=== PATIENT | male | born 1940 | race Caucasian/White ===

== ENCOUNTER 2016-03-23 11:55 | Emergency (ER) | payer OTHER ==
[~2016-03-23] VITALS: Ht 182.9 cm; Wt 67.2 kg
[~2016-03-23 11:55] MED LIST: BRIM0.1S OPL; GARL400T4 PO; LISI-461 PO; MULTTAB58 PO; OMEGCAP2 PO
[2016-03-23 12:04] VITALS: TEMP 36.5; Ht 182.9 cm; Wt 67.2 kg
[2016-03-23] MEDS ORDERED: ACETAMINOPHEN 500 MG TAB PO STA (12:24)
[2016-03-23] MEDS ORDERED: SODIUM CHLORIDE 0.9% 1000ML 500 ML IV STA (12:24)
--- NOTE | 2016-03-23 12:29 | EMERGENCY ROOM VISIT NOTE ---
History Report prepared by Tanvir: Pietro Gardner Under the Supervision of: Dr. Zana Calderon M.D. First contact with patient: 12:19 Chief Complaint: FALL Stated Complaint: FALL, LAC CONFUSION History of Present Illness The patient is a 76 year old male who presents to the Emergency Room with complaints of a sudden mechanical fall that occurred prior to arrival this morning. He is somewhat hard to understand. When asked what year it is and who our next president will be, the patient does answer correctly. The patient says he slipped and fell on the ground. He has a laceration over his right eye from the fall and now complains of right shoulder pain. He notes that he has hypertension. The patient states that nothing was bothering him before the fall. Source of History: patient Onset: Prior to arrival this morning Position: other (global - mechanical fall) Timing: other (sudden) Note: Associated symptoms: Laceration over right eye and right shoulder pain from fall. Denies anything bothering him before fall. Review of Systems See HPI for pertinent positives & negatives. A total of 10 systems reviewed and were otherwise negative. Past Medical & Surgical Medical Problems: (1) Basal cell carcinoma (2) Cognitive change (3) Delirium (4) Glaucoma (5) HTN (hypertension) Family History Patient reports no known family medical history. Social History Smoking Status: Never Smoker Drug Use: none Marital Status: single Housing Status: lives alone Occupation Status: retired Current/Historical Medications Scheduled Brinzolamide-Brimonidine Tartr (Simbrinza), 1 DOSE OPL TID Dorzolamide/Timolol Oph (Cosopt Oph *), 1 DROPS OPL BID Latanoprost (Xalatan 0.005% Oph Susan), 1 DROPS OPL HS Lisinopril (Lisinopril), 20 MG PO DAILY Prednisolone Acetate (Prednisolone Acetate), 1 DROP OPL QID Travoprost (Travatan Z), 1 DROP OPL HS Allergies Coded Allergies: Apraclonidine (Verified Allergy, Unknown, RASH, 01/21/16) Epinephrine (Verified Adverse Reaction, Unknown, Palpitations, 01/21/16) Physical Exam Vital Signs Date Time Temp Pulse Resp B/P Pulse Ox O2 Delivery O2 Flow Rate FiO2 03/23/16 13:49 71 18 174/96 97 Room Air 03/23/16 12:55 78 03/23/16 12:52 63 155/93 69 131/84 70 99/69 03/23/16 12:04 36.5 65 18 167/96 97 Room Air Physical Exam CONSTITUTIONAL: Moderate painful distress. HEENT: No icterus, moist mucous membranes NECK: No meningismus, trachea is midline. CARDIOVASCULAR: Regular rate, normal perfusion RESPIRATORY: Unlabored breathing. Clear to auscultation. GASTROINTESTINAL: Non-tender GENITOURINARY: No flank tenderness MUSCULOSKELETAL: Full range of motion. No midline tenderness. NEUROLOGIC: Alert, oriented, and cooperative without focal neurologic deficits. PSYCHIATRIC: Normal affect SKIN: Normal for ethnicity. Large bruise and small laceration to right forehead with edema. Medical Decision & Procedures ER Provider Diagnostic Interpretation: CT results as stated below per my review and radiologist interpretation. MAXILLOFACIAL CT WITHOUT CONTRAST CLINICAL HISTORY: Fall with facial injury. COMPARISON STUDY: Facial bone radiographs May 24, 2015. TECHNIQUE: A maxillofacial CT was performed without IV contrast. Coronal and sagittal reformats were viewed. FINDINGS: Alignment of the temporomandibular joints is anatomic. Right facial and right forehead contusions are present. The globes are intact. There is no retrobulbar hematoma. No acute fracture of the facial bones is identified. IMPRESSION: 1. No acute facial fracture. 2. Right facial and forehead contusions. Globes intact. No retrobulbar hematoma. Electronically signed by: Vernon Hartmann M.D. 03/23/2016 2:39 PM Dictated Date/Time: 03/23/2016 2:[address] OF THE HEAD WITHOUT CONTRAST CLINICAL HISTORY: Fall. COMPARISON STUDY: Head CT January 21, 2016. CT DOSE: 2481.94 mGy.cm TECHNIQUE: Helical axial images of the head were obtained without IV contrast. Automated exposure control was utilized for the study. FINDINGS: No acute intracranial hemorrhage, midline shift or mass effect is present. Ventricular system is stable. The basilar cisterns are patent. There are no extra axial collections. Mild white matter hypodensity suggests small vessel disease. The appearance of the brain is unchanged. Right facial contusions are present. No calvarial fracture is identified. The facial bones are better depicted on the maxillofacial CT. IMPRESSION: 1. No acute intracranial findings. 2. Right facial and forehead contusions. No calvarial fracture. The facial bones are better depicted on the maxillofacial CT. Electronically signed by: Vernon Hartmann M.D. 03/23/2016 2:36 PM Dictated Date/Time: 03/23/2016 2:[address] OF THE CHEST WITH IV CONTRAST CLINICAL HISTORY: Bruising status post trauma. COMPARISON STUDY: Chest x-ray dated 01/21/2016 TECHNIQUE: Following the IV administration of 119 mL of Optiray-320, CT of the thorax was performed from the thoracic inlet to the lung bases. Images are reviewed in the axial, sagittal, and coronal planes. IV contrast was administered without complication. CT DOSE: FINDINGS: Thyroid: Imaged portions of the thyroid gland are normal in appearance. Thoracic aorta: The thoracic aorta is normal in course and caliber, noting standard 3-vessel arch anatomy. No aneurysm or dissection is seen. Pulmonary vasculature: The pulmonary trunk is normal in caliber. There are no central filling defects identified to suggest pulmonary embolus. Note that this examination was not protocoled for the evaluation of pulmonary emboli. HEART: The heart is normal in size and configuration, without pericardial effusion. Lungs and pleural spaces: There is respiratory motion artifact. There is mild emphysema. There is bibasal atelectasis. There is scattered bilateral calcified granulomas. Mediastinum: There is no mediastinal lymphadenopathy. Linda: Clear. Axilla: Clear. Upper abdomen: Partially visualized upper abdominal viscera is within normal limits. Skeletal structures: There are no lytic or blastic osseous lesions. There is a mild superior endplate T3 compression deformity which is felt to be old IMPRESSION: 1. No CT evidence of acute intrathoracic injury 2. Multiple tiny bilateral calcified granulomas 3. Bibasilar atelectasis 4. Emphysema Electronically signed by: Oneil Mendez M.D. 03/23/2016 2:53 PM Dictated Date/Time: 03/23/2016 2:[address] SCAN OF THE CERVICAL SPINE CLINICAL HISTORY: Trauma. Fall. COMPARISON STUDY: No priors. TECHNIQUE: CT scan of the cervical spine is performed from the skull base to the upper thoracic spine. Images are reviewed in the axial, sagittal, and coronal planes. IV contrast was not administered for this examination. FINDINGS: Skeletal structures: The skeletal structures are osteopenic. There is no evidence of fracture or subluxation involving the cervical spine. Vertebral body height and alignment are maintained. The odontoid process and lateral masses are intact. The atlantoaxial articulation is preserved noting productive degenerative change. The spinous processes appear intact. There is mild to moderate multilevel cervical spondylosis. Uncovertebral and facet arthropathy are seen at several levels. There are mild superior endplate compression deformities of T3 and T4. Intervertebral discs: There is moderate disc space narrowing at C5-C6. The remaining disc spaces appear preserved. Central canal: A posterior disc osteophyte complex at C5-C6 likely contributes to acquired compromise of the central canal. Soft tissues: The prevertebral and paraspinous soft tissues are within normal limits. Calvarium: The visualized calvarium at the skull base appears intact. Brain parenchyma: Partially visualized brain parenchyma the skull base is within normal limits. Sinuses and mastoids: The visualized paranasal sinuses are clear. The mastoid air cells are well pneumatized. Lung apices: Clear as visualized noting scattered calcified granulomas. IMPRESSION: 1. There is no evidence of fracture or subluxation involving the cervical spine. 2. Osteopenia and spondylotic change as above. 3. There are mild and age indeterminant superior endplate compression deformities of T3 and T4. Electronically signed by: Fady Contreras M.D. 03/23/2016 2:41 PM Dictated Date/Time: 03/23/2016 2:[address] SCAN OF THE ABDOMEN AND PELVIS WITH IV CONTRAST CLINICAL HISTORY: Fall. COMPARISON STUDY: Pelvic radiograph dated 01/27/2010. TECHNIQUE: Following the IV administration of 119 cc of Optiray 320, CT scan of the abdomen and pelvis is performed from the lung bases to the proximal femora. Images are reviewed in the axial, sagittal, and coronal planes. IV contrast was administered without complication. Automated dose control exposure was utilized. The examination is degraded by streak artifact from the patient's arms which could not be elevated above the abdomen or pelvis. The examination is also significantly degraded by motion artifact. FINDINGS: Lung bases: The heart is normal in size and without pericardial effusion. The lung bases are clear noting dependent atelectasis. No pneumothorax is seen at either lung base. Liver: The contrast-enhanced liver is normal in size, contour, and attenuation. There is no intrahepatic biliary ductal dilatation. The hepatic veins and portal veins are patent. Gallbladder: Unremarkable. Spleen: Normal in size and attenuation. Pancreas: Moderately atrophic and grossly unremarkable. Adrenal glands: Unremarkable. Kidneys: The contrast enhanced kidneys demonstrate cortical atrophy and are without hydronephrosis. The kidneys enhance symmetrically. Abdominal vasculature: The abdominal aorta is normal in course and caliber noting moderate atherosclerotic calcification. Bowel: The small bowel and colon are normal in course and caliber. Mild wall thickening and hyperemia is suggested involving the distal/terminal ileum on axial image #261. There is moderate colonic fecal retention. The appendix is well-visualized and normal. Peritoneum: There is no intraperitoneal free air or abdominal ascites. Lymphadenopathy: None. Pelvic viscera: The prostate gland is enlarged and heterogeneous, measuring 6 cm in transverse diameter. There is median lobe hypertrophy. The bladder is normal as visualized. Skeletal structures: The skeletal structures are osteopenic. No fracture is identified. Limbus vertebra is identified involving T12. There is moderate lumbosacral spondylosis. No lytic or blastic lesions are seen. IMPRESSION: 1. Significantly motion and streak artifact degraded examination. 2. There is no evidence of solid organ injury in the abdomen or pelvis. 3. No fracture is identified. 4. Moderate constipation. 5. Question mild wall thickening and hyperemia involving the distal/terminal ileum. Correlate clinically for evidence of a nonspecific distal/terminal ileitis. 6. Prostatomegaly. 7. Additional changes as above. Electronically signed by: Fady Contreras M.D. 03/23/2016 2:55 PM Dictated Date/Time: 03/23/2016 2:44 PM Laboratory Results 03/23/16 13:08 Red Blood Count 4.75, Mean Corpuscular Volume 92.8, Mean Corpuscular Hemoglobin 32.4, Mean Corpuscular Hemoglobin Concent 34.9, Mean Platelet Volume 10.0, Neutrophils (%) (Auto) 77.6, Lymphocytes (%) (Auto) 12.0, Monocytes (%) (Auto) 8.5, Eosinophils (%) (Auto) 1.5, Basophils (%) (Auto) 0.3, Neutrophils # (Auto) 5.58, Lymphocytes # (Auto) 0.86, Monocytes # (Auto) 0.61, Eosinophils # (Auto) 0.11, Basophils # (Auto) 0.02 03/23/16 13:08 Test 03/23/16 13:08 White Blood Count 7.19 K/uL (4.8-10.8) Red Blood Count 4.75 M/uL (4.7-6.1) Hemoglobin 15.4 g/dL (14.0-18.0) Hematocrit 44.1 % (42-52) Mean Corpuscular Volume 92.8 fL (80-100) Mean Corpuscular Hemoglobin 32.4 pg (25-34) Mean Corpuscular Hemoglobin Concent 34.9 g/dl (32-36) Platelet Count 199 K/uL (130-400) Mean Platelet Volume 10.0 fL (7.4-10.4) Neutrophils (%) (Auto) 77.6 % Lymphocytes (%) (Auto) 12.0 % Monocytes (%) (Auto) 8.5 % Eosinophils (%) (Auto) 1.5 % Basophils (%) (Auto) 0.3 % Neutrophils # (Auto) 5.58 K/uL (1.4-6.5) Lymphocytes # (Auto) 0.86 K/uL (1.2-3.4) Monocytes # (Auto) 0.61 K/uL (0.11-0.59) Eosinophils # (Auto) 0.11 K/uL (0-0.5) Basophils # (Auto) 0.02 K/uL (0-0.2) RDW Standard Deviation 44.8 fL (36.4-46.3) RDW Coefficient of Variation 13.2 % (11.5-14.5) Immature Granulocyte % (Auto) 0.1 % Immature Granulocyte # (Auto) 0.01 K/uL (0.00-0.02) Prothrombin Time 10.7 SECONDS (9.0-12.0) Prothromb Time International Ratio 1.0 (0.9-1.1) Activated Partial Thromboplast Time 29.4 SECONDS (21.0-31.0) Partial Thromboplastin Ratio 1.1 Anion Gap 9.0 mmol/L (3-11) Est Creatinine Clear Calc Drug Dose 65.9 ml/min Estimated GFR () 94.0 Estimated GFR (Non- 81.1 BUN/Creatinine Ratio 30.2 (10-20) Calcium Level 9.7 mg/dl (8.5-10.1) Magnesium Level 2.4 mg/dl (1.8-2.4) Total Bilirubin 0.5 mg/dl (0.2-1) Direct Bilirubin 0.1 mg/dl (0-0.2) Aspartate Amino Transf (AST/SGOT) 20 U/L (15-37) Alanine Aminotransferase (ALT/SGPT) 27 U/L (12-78) Alkaline Phosphatase 108 U/L (45-117) Troponin I 0.015 ng/ml (0-0.045) Total Protein 6.9 gm/dl (6.4-8.2) Albumin 3.6 gm/dl (3.4-5.0) Labs reviewed by ED physician. ECG Indication: other (fall) Rate (beats per minute): 67 Rhythm: normal sinus Findings: other (RBBB, nonspecific ST findings) ED Course 1221: Past medical records reviewed. The patient was evaluated in room C12B. A complete history and physical examination was performed. 1224: Ordered NSS 500 ml @ 0 mls/hr Wide Open IV, Tylenol Tab 1000 mg PO. 1230: Ordered Morphine Sulfate Inj 4 mg IV PRN. 1331: I reevaluated the patient and I discussed the pros and cons of CT imaging with him. I am adamant that the patient gets imaging. I also got the leather case finisher to check the patient's social status. The patient refused an x-ray. 1545: Ordered Buffered Lidocaine 1% Inj 20 ml INFIL, Buffered Xylocaine/ Epinephrine 1% Inj 20 ml INFIL. 1549: I reevaluated the patient and he is resting comfortably. The patient verbally expressed agreement and understanding of the treatment plan. The patient will be discharged. Medical Decision Differential diagnosis: Etiologies such as fracture, dislocation, intra-abdominal, pneumothorax, intrathoracic , intracranial, neurologic, as well as other traumatic pathologies were entertained, Etiologies such as sepsis, UTI, pneumonia, metabolic, electrolyte abnormalities , cardiac sources, intracerebral event, toxicologic, neurologic, as well as others were entertained. 36-year-old presented via ambulatory evaluation of mechanical fall and subsequent head injury with extensive bruising to the right side of his face with stellate facial laceration. Patient talks very intelligently although it is sometimes hard to understand given his [place] accent. He denies any other complaints by review of systems and initially was refusing CT scanning of his head as well as other workups. He is very adamant that he had right as a patient and after much discussion on my part and convincing I was adamant that given his age and circumstances a CT of his head was to be obtained. He subsequently cooperated for the CT scan which was ultimately negative. He refused shoulder x-ray is internal to go home. Patient appears generally unwell and therefore case management consult obtained for home evaluation and possibility of additional services should patient desire them. Patient was very clear he wanted no further care and no observation hospital. PA completed suture repair. Impression Primary Impression: Head injury Additional Impressions: Facial laceration, Facial contusion, Shoulder contusion Scribe Attestation The scribe's documentation has been prepared under my direction and personally reviewed by me in its entirety. I confirm that the note above accurately reflects all work, treatment, procedures, and medical decision making performed by me. Departure Information Dispostion Home / Self-Care Referrals Socrates Solis M.D. (PCP) Forms HOME CARE DOCUMENTATION FORM, IMPORTANT VISIT INFORMATION Patient Instructions A Signature Page, ED Head Injury Closed, ED Laceration Facial Sutr Tape, My [facility]
[2016-03-23] MEDS ORDERED: MoRPHine SULFATE 4 MG/ML 1 ML CARP\\VIAL IV PRN (12:30)
[2016-03-23] MEDS ORDERED: LSN20 PO (12:34)
[2016-03-23] MEDS ORDERED: LATA0.5S OPB (12:36)
[2016-03-23 13:26] LABS: BASO % 0.3 %; BASO ABS # 0.02 K/uL (0-0.2); COMPLETE YES; EOS % 1.5 %; HEMATOCRIT 44.1 % (42-52); IG% 0.1 %; LYMPH ABS # 0.86 K/uL (1.2-3.4); MEAN CELL VOLUME 92.8 fL (80-100); MEAN CORPUSCULAR HEMOGLOBIN 32.4 pg (25-34); MEAN CORPUSCULAR HGB CONC 34.9 g/dl (32-36); MONO % 8.5 %; NEUT % 77.6 %; PLATELET COUNT 199 K/uL (130-400); RED BLOOD COUNT 4.75 M/uL (4.7-6.1); WHITE BLOOD COUNT 7.19 K/uL (4.8-10.8)
[2016-03-23 13:38] LABS: PARTIAL THROMBOPLASTIN RATIO 1.1; PROTHROMBIN TIME (PATIENT) 10.7 SECONDS (9.0-12.0)
[2016-03-23 13:47] LABS: BUN/CREATININE RATIO 30.2 (10-20); CALCIUM 9.7 mg/dl (8.5-10.1); CREATININE 0.92 mg/dl (0.60-1.40); MAGNESIUM 2.4 mg/dl (1.8-2.4)
[2016-03-23] MEDS ORDERED: OPTIRAY 320 IV PRN (14:30)
--- NOTE | 2016-03-23 14:37 | DIAGNOSTIC IMAGING REPORT ---
CT OF THE HEAD WITHOUT CONTRAST CLINICAL HISTORY: Fall. COMPARISON STUDY: Head CT January 21, 2016. CT DOSE: 2481.94 mGy.cm TECHNIQUE: Helical axial images of the head were obtained without IV contrast. Automated exposure control was utilized for the study. FINDINGS: No acute intracranial hemorrhage, midline shift or mass effect is present. Ventricular system is stable. The basilar cisterns are patent. There are no extra axial collections. Mild white matter hypodensity suggests small vessel disease. The appearance of the brain is unchanged. Right facial contusions are present. No calvarial fracture is identified. The facial bones are better depicted on the maxillofacial CT. IMPRESSION: 1. No acute intracranial findings. 2. Right facial and forehead contusions. No calvarial fracture. The facial bones are better depicted on the maxillofacial CT. Electronically signed by: Vernon Hartmann M.D. 03/23/2016 2:36 PM Dictated Date/Time: 03/23/2016 2:33 PM
[2016-03-23] MEDS ORDERED: CSPOPS OPL (14:39)
--- NOTE | 2016-03-23 14:41 | DIAGNOSTIC IMAGING REPORT ---
MAXILLOFACIAL CT WITHOUT CONTRAST CLINICAL HISTORY: Fall with facial injury. COMPARISON STUDY: Facial bone radiographs May 24, 2015. TECHNIQUE: A maxillofacial CT was performed without IV contrast. Coronal and sagittal reformats were viewed. FINDINGS: Alignment of the temporomandibular joints is anatomic. Right facial and right forehead contusions are present. The globes are intact. There is no retrobulbar hematoma. No acute fracture of the facial bones is identified. IMPRESSION: 1. No acute facial fracture. 2. Right facial and forehead contusions. Globes intact. No retrobulbar hematoma. Electronically signed by: Vernon Hartmann M.D. 03/23/2016 2:39 PM Dictated Date/Time: 03/23/2016 2:36 PM
--- NOTE | 2016-03-23 14:43 | DIAGNOSTIC IMAGING REPORT ---
CT SCAN OF THE CERVICAL SPINE CLINICAL HISTORY: Trauma. Fall. COMPARISON STUDY: No priors. TECHNIQUE: CT scan of the cervical spine is performed from the skull base to the upper thoracic spine. Images are reviewed in the axial, sagittal, and coronal planes. IV contrast was not administered for this examination. FINDINGS: Skeletal structures: The skeletal structures are osteopenic. There is no evidence of fracture or subluxation involving the cervical spine. Vertebral body height and alignment are maintained. The odontoid process and lateral masses are intact. The atlantoaxial articulation is preserved noting productive degenerative change. The spinous processes appear intact. There is mild to moderate multilevel cervical spondylosis. Uncovertebral and facet arthropathy are seen at several levels. There are mild superior endplate compression deformities of T3 and T4. Intervertebral discs: There is moderate disc space narrowing at C5-C6. The remaining disc spaces appear preserved. Central canal: A posterior disc osteophyte complex at C5-C6 likely contributes to acquired compromise of the central canal. Soft tissues: The prevertebral and paraspinous soft tissues are within normal limits. Calvarium: The visualized calvarium at the skull base appears intact. Brain parenchyma: Partially visualized brain parenchyma the skull base is within normal limits. Sinuses and mastoids: The visualized paranasal sinuses are clear. The mastoid air cells are well pneumatized. Lung apices: Clear as visualized noting scattered calcified granulomas. IMPRESSION: 1. There is no evidence of fracture or subluxation involving the cervical spine. 2. Osteopenia and spondylotic change as above. 3. There are mild and age indeterminant superior endplate compression deformities of T3 and T4. Electronically signed by: Fady Contreras M.D. 03/23/2016 2:41 PM Dictated Date/Time: 03/23/2016 2:37 PM
--- NOTE | 2016-03-23 14:55 | DIAGNOSTIC IMAGING REPORT ---
CT OF THE CHEST WITH IV CONTRAST CLINICAL HISTORY: Bruising status post trauma. COMPARISON STUDY: Chest x-ray dated 01/21/2016 TECHNIQUE: Following the IV administration of 119 mL of Optiray-320, CT of the thorax was performed from the thoracic inlet to the lung bases. Images are reviewed in the axial, sagittal, and coronal planes. IV contrast was administered without complication. CT DOSE: FINDINGS: Thyroid: Imaged portions of the thyroid gland are normal in appearance. Thoracic aorta: The thoracic aorta is normal in course and caliber, noting standard 3-vessel arch anatomy. No aneurysm or dissection is seen. Pulmonary vasculature: The pulmonary trunk is normal in caliber. There are no central filling defects identified to suggest pulmonary embolus. Note that this examination was not protocoled for the evaluation of pulmonary emboli. HEART: The heart is normal in size and configuration, without pericardial effusion. Lungs and pleural spaces: There is respiratory motion artifact. There is mild emphysema. There is bibasal atelectasis. There is scattered bilateral calcified granulomas. Mediastinum: There is no mediastinal lymphadenopathy. Linda: Clear. Axilla: Clear. Upper abdomen: Partially visualized upper abdominal viscera is within normal limits. Skeletal structures: There are no lytic or blastic osseous lesions. There is a mild superior endplate T3 compression deformity which is felt to be old IMPRESSION: 1. No CT evidence of acute intrathoracic injury 2. Multiple tiny bilateral calcified granulomas 3. Bibasilar atelectasis 4. Emphysema Electronically signed by: Oneil Mendez M.D. 03/23/2016 2:53 PM Dictated Date/Time: 03/23/2016 2:47 PM
--- NOTE | 2016-03-23 14:56 | DIAGNOSTIC IMAGING REPORT ---
CT SCAN OF THE ABDOMEN AND PELVIS WITH IV CONTRAST CLINICAL HISTORY: Fall. COMPARISON STUDY: Pelvic radiograph dated 01/27/2010. TECHNIQUE: Following the IV administration of 119 cc of Optiray 320, CT scan of the abdomen and pelvis is performed from the lung bases to the proximal femora. Images are reviewed in the axial, sagittal, and coronal planes. IV contrast was administered without complication. Automated dose control exposure was utilized. The examination is degraded by streak artifact from the patient's arms which could not be elevated above the abdomen or pelvis. The examination is also significantly degraded by motion artifact. FINDINGS: Lung bases: The heart is normal in size and without pericardial effusion. The lung bases are clear noting dependent atelectasis. No pneumothorax is seen at either lung base. Liver: The contrast-enhanced liver is normal in size, contour, and attenuation. There is no intrahepatic biliary ductal dilatation. The hepatic veins and portal veins are patent. Gallbladder: Unremarkable. Spleen: Normal in size and attenuation. Pancreas: Moderately atrophic and grossly unremarkable. Adrenal glands: Unremarkable. Kidneys: The contrast enhanced kidneys demonstrate cortical atrophy and are without hydronephrosis. The kidneys enhance symmetrically. Abdominal vasculature: The abdominal aorta is normal in course and caliber noting moderate atherosclerotic calcification. Bowel: The small bowel and colon are normal in course and caliber. Mild wall thickening and hyperemia is suggested involving the distal/terminal ileum on axial image #261. There is moderate colonic fecal retention. The appendix is well-visualized and normal. Peritoneum: There is no intraperitoneal free air or abdominal ascites. Lymphadenopathy: None. Pelvic viscera: The prostate gland is enlarged and heterogeneous, measuring 6 cm in transverse diameter. There is median lobe hypertrophy. The bladder is normal as visualized. Skeletal structures: The skeletal structures are osteopenic. No fracture is identified. Limbus vertebra is identified involving T12. There is moderate lumbosacral spondylosis. No lytic or blastic lesions are seen. IMPRESSION: 1. Significantly motion and streak artifact degraded examination. 2. There is no evidence of solid organ injury in the abdomen or pelvis. 3. No fracture is identified. 4. Moderate constipation. 5. Question mild wall thickening and hyperemia involving the distal/terminal ileum. Correlate clinically for evidence of a nonspecific distal/terminal ileitis. 6. Prostatomegaly. 7. Additional changes as above. Electronically signed by: Fady Contreras M.D. 03/23/2016 2:55 PM Dictated Date/Time: 03/23/2016 2:44 PM
[2016-03-23] MEDS ORDERED: BRIN3SUS OPL (15:03)
[2016-03-23] MEDS ORDERED: TRAV0.00 OPL (15:03)
[2016-03-23] MEDS ORDERED: PRDFOPS OPL (15:03)
[2016-03-23] MEDS ORDERED: XYLOCAINE 1%/SOD BICARB 20 ML VIAL INFIL ONE ×2 (15:40→15:45)
[2016-03-23] MEDS ORDERED: LIDO/EPINEPHRINE/SOD BICARB 20 ML VIAL INFIL ONE (15:45)
--- NOTE | 2016-03-23 16:29 | EMERGENCY ROOM VISIT NOTE ---
ED Visit Note I was requested by to repair a facial laceration on this patient. Wound Repair: Complexity: Basic. Verbal consent was obtained after the risks and benefits were explained, including but not limited to bleeding, scarring, infection, pain, and bone/joint /nerve damage. The skin was prepped with betadine and a sterile field set. The wound was anesthetized with 3.0 ml of 1% buffered lidocaine. With direct pressure the bleeding subsided. Copious irrigation was performed using sterile saline. The wound was explored for foreign bodies and none found. Debridement was not performed. The wound edges were approximated using 6-0 Ethilon with 7 simple interrupted sutures. Hemostasis and excellent approximation was achieved. Antibacterial ointment and a sterile dressing applied. Detailed wound care instructions and signs and symptoms of infection reviewed with the patient. No complications and the patient tolerated the procedure well. Please see Dr. huitron's note for further patient care.
[2016-03-23 19:34] VITALS: BP 140/90; PULSE 76; O2SAT 99
--- NOTE | 2016-03-25 08:09 | EDITING REQUIRED CODING QUERY ---
41 DOS 03/23/16 LENGTH OF LACERATION To promote full compliance with coding requirements relating to patient care, physician participation is requested in all cases of size marker uncertainty. Please assist us with the question(s) below: Please document the length of the FOREHEAD laceration. Please type the length in cm within the parenthesis () below. FOREHEAD laceration is ( 2.5 ) cm. Thank you Lashawn Flores
== END 2016-03-23 20:12 | disposition home or self-care (01) ==
LOC: EDBD 11:55 → C.EDC 11:56
DX: S01.81XA Laceration without foreign body of other part of head, initial encounter (principal); S40.011A Contusion of right shoulder, initial encounter; W01.0XXA Fall on same level from slipping, tripping and stumbling without subsequent striking against object, initial encounter; Z85.828 Personal history of other malignant neoplasm of skin; H40.9 Unspecified glaucoma; I10 Essential (primary) hypertension; R41.0 Disorientation, unspecified; Z79.899 Other long term (current) drug therapy

== ENCOUNTER → 2016-04-13 | Outpatient (CLI) | payer OTHER ==
[~2016-04-13] MED LIST changes: -BRIM0.1S OPL; +BRIN3SUS OPL; +CSPOPS OPL; -GARL400T4 PO; +LATA0.5S OPB; -LISI-461 PO; +LSN20 PO; -MULTTAB58 PO; -OMEGCAP2 PO; +PRDFOPS OPL; +TRAV0.00 OPL
--- NOTE | 2016-04-14 14:43 | DIAGNOSTIC IMAGING REPORT ---
LUMBAR SPINE 5 VIEWS HISTORY: LOW BACK PAIN COMPARISON: None. FINDINGS: There is no fracture. No subluxation. For the purpose of the report there are 5 lumbar-type vertebral bodies. S1 is demonstrated to be a transitional vertebra with partial subluxation on the left. Mild/moderate facet degenerative changes within the lower lumbar spine. Hypoplastic S1-S2 disc space. Mild disc space to L4-L5 and L5-S1. IMPRESSION: No fracture or subluxation within the lumbar spine. 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 Electronically signed by: David Torres M.D. 04/14/2016 2:42 PM Dictated Date/Time: 04/14/2016 2:16 PM
== END | disposition home or self-care (01) ==
LOC: C.RDSM 16:48
PROVIDERS: ATTEND Family Medicine
DX: M54.5 Low back pain (principal); M47.816 Spondylosis without myelopathy or radiculopathy, lumbar region

== ENCOUNTER → 2016-07-23 | Day surgery (SDC) | payer OTHER ==
[2016-07-02 12:04] VITALS: Ht 182.9 cm; Wt 63.6 kg
[~2016-07-23] VITALS: Ht 182.9 cm; Wt 63.6 kg
[~2016-07-23] MED LIST changes: -BRIN3SUS OPL; -CSPOPS OPL; +IOPAMIDOL INJ 61% 15 ML VIAL ONE; +LIDOCAINE HCL 1% MPF 5 ML VIAL ONE; -LSN20 PO; -PRDFOPS OPL; +SODIUM CHLORIDE 0.9% INJ 10 ML VIAL ONE; -TRAV0.00 OPL
--- NOTE | 2016-07-23 15:19 | History & Physical Bridge - [place] ---
H&P Re-Evaluation Bridge Note: I have examined the patient, reviewed the History & Physical and in the interval since the performance of the History & Physical I have noted the following changes of clinical significance: No changes noted
[2016-07-23 15:46] VITALS: TEMP 36.5
--- NOTE | 2016-07-23 15:48 | Discharge Instructions ---
Discharge Instructions Date of Service July 23, 2016. Visit Reason for Visit: Lumbar Spinal Stenosis Discharge Discharge Diagnosis / Problem: leg pain Discharge Goals Goal(s): Decrease discomfort, Improve function Activity Recommendations Activity Limitations: resume your previous activity Anesthesia . Post Anesthesia Instructions: If you have had General Anesthesia or IV Sedation: * Do not drive today. * Resume driving when surgeon permits. * Do not make important decisions or sign legal documents today. * Call surgeon for: 1. Temperature elevations greater than 101 degrees F. 2. Uncontrollable pain. 3. Excessive bleeding. 4. Persistent nausea and vomiting. 5. Medication intolerance (nausea, vomiting or rash). * For nausea and vomiting use only clear liquids such as: tea, soda, bouillon until nausea subsides, then gradually increase diet as tolerated. * If you have any concerns or questions, call your surgeon's office. If physician is unavailable and it is an emergency, call 911 or go to the nearest emergency room. . Diet Recommendations Recommended Home Diet: resume previous diet Procedures Procedures Performed: LUMBAR EPIDURAL STEROID INJECTION Pending Studies Studies pending at discharge: no Medical Emergencies . Who to Call and When: Medical Emergencies: If at any time you feel your situation is an emergency, please call 911 immediately. . Non-Emergent Contact Non-Emergency issues call your: Specialist . . "Provider Documentation" section prepared by Frank Alcantara. .
[2016-07-23 16:00] VITALS: BP 167/95; PULSE 67; O2SAT 98
--- NOTE | 2016-07-24 05:47 | OPERATIVE REPORT ---
DATE OF OPERATION: 07/23/2016 PREOPERATIVE DIAGNOSIS: Lumbar spinal stenosis with neurogenic claudication. POSTOPERATIVE DIAGNOSIS: Same. INDICATIONS: The patient is a 76-year-old white male who has difficulty with lumbar spinal stenosis, which causes him neurogenic claudication. He notes that to ambulate he needs to bend forward or sit down to take breaks. He is having more difficulty and discomfort and presents today for an epidural injection to provide him with functional improvement as he has not responded to conservative treatment. PHYSICAL EXAMINATION: Pleasant male with nontender to palpation of his lumbar spine. He had no significant limitations with forward flexion or extension. He had no focal weakness. Negative seated straight leg raises. CONSENT: Verbal and written consent was obtained from the patient. Risks and benefits were reviewed. Risks include but are not limited to epidural abscess, epidural hematoma, allergic reaction and dural puncture, wishes to proceed. PROCEDURE: The patient was taken back into the special procedures room of the [facility] where he was maintained in a prone position. Backside was cleansed with Betadine x3 and a dry sterile dressing was applied. Fluoroscope was used to identify the L5-S1 intralaminar space and overlying skin on the left side was anesthetized with 4 mL of lidocaine 1% with a 25 gauge 1.5-inch needle. A 22-gauge 3-1/2 inch Tuohy needle was then directed down towards the intralaminar space. It was advanced under lateral fluoroscopic guidance and loss of resistance was noted at a depth of 6 cm. Isovue 300 contrast was not injected given his reaction to iodipine and he underwent injection after negative aspiration of 40 mg Depo-Medrol and 4 mL of preservative free sodium chloride. Injection was well tolerated. DISPOSITION: 1. The patient is taken out into the discharge recovery area where he will be discharged home once discharge criteria have been met. 2. Follow up in the [facility] office in 2-4 weeks. I attest to the content of the Intraoperative Record and any orders documented therein. Any exceptions are noted below. MIRIAM
== END | disposition home or self-care (01) ==
LOC: X.SURG 12:51
PROVIDERS: ATTEND Physical Medicine & Rehabilitation
DX: M48.06 Spinal stenosis, lumbar region (principal); I73.9 Peripheral vascular disease, unspecified

== ENCOUNTER 2016-07-26 14:44 | Emergency (ER) | payer OTHER ==
[~2016-07-26 14:44] MED LIST changes: -IOPAMIDOL INJ 61% 15 ML VIAL ONE; -LIDOCAINE HCL 1% MPF 5 ML VIAL ONE; -SODIUM CHLORIDE 0.9% INJ 10 ML VIAL ONE
== END 2016-07-26 16:18 | disposition left against medical advice (07) ==
LOC: C.EDB 14:48
DX: R13.0 Aphagia (principal)

== ENCOUNTER → 2016-09-03 | Outpatient (CLI) | payer OTHER ==
[2016-09-03 08:57] LABS: ALT/SGPT 22 U/L (12-78); AST/SGOT 14 U/L (15-37); BLOOD UREA NITROGEN 17 mg/dl (7-18); BUN/CREATININE RATIO 15.3 (10-20); CARBON DIOXIDE 29 mmol/L (21-32); CHLORIDE 106 mmol/L (98-107); GLUCOSE 90 mg/dl (70-99); MAGNESIUM 2.4 mg/dl (1.8-2.4); POTASSIUM 4.3 mmol/L (3.5-5.1); SODIUM 142 mmol/L (136-145); TRIGLYCERIDES 48 mg/dl (0-150); VERY LOW DENSITY LIPOPROT CALC 10 mg/dl
[2016-09-03 09:08] LABS: ALB/GLOB RATIO 1.2 (0.9-2); ALKALINE PHOSPHATASE 81 U/L (45-117); CHOLESTEROL 194 mg/dl (0-200); CHOLESTEROL/HDL RATIO 3.5; HDL CHOLESTEROL 56 mg/dl; LDL CHOLESTEROL CALCULATED 128 mg/dl
[2016-09-03 09:17] LABS: CALCIUM 8.8 mg/dl (8.5-10.1)
--- NOTE | 2016-09-07 12:44 | CODING QUERY MEDICAL NECESSITY ---
SUPPORTING DIAGNOSIS NEEDED A supporting diagnosis is required for the test/procedure performed on this patient in order for us to be reimbursed by the patient's insurance. Please provide a supporting diagnosis for the following test/procedure listed below next to the test name along with your signature. *If there is no additional diagnosis for this patient that would support the following test/procedure please document that below next to the test/procedure. Test(s)/Procedure(s) that require a supporting diagnosis: * VITAMIN D, 25-HYDROXY DIAGNOSIS: Provider Signature: Date: Thank you Marta Oviedo [employer] Once completed, please kindly fax back to [phone] For questions please call [phone]
== END ==
LOC: C.LABCC 07:49
PROVIDERS: ATTEND Internal Medicine
DX: G20 Parkinson's disease (principal); I10 Essential (primary) hypertension; E78.5 Hyperlipidemia, unspecified; M81.8 Other osteoporosis without current pathological fracture; M62.81 Muscle weakness (generalized); R26.89 Other abnormalities of gait and mobility

== ENCOUNTER → 2017-04-14 | Outpatient (CLI) | payer OTHER ==
[2017-04-14 10:18] LABS: ALBUMIN 3.4 gm/dl (3.4-5.0); ALT/SGPT 26 U/L (12-78); AST/SGOT 18 U/L (15-37); BLOOD UREA NITROGEN 17 mg/dl (7-18); CALCIUM 8.8 mg/dl (8.5-10.1); CARBON DIOXIDE 30 mmol/L (21-32); CREATININE 0.87 mg/dl (0.60-1.40); GLUCOSE 82 mg/dl (70-99); POTASSIUM 3.9 mmol/L (3.5-5.1); SODIUM 135 mmol/L (136-145)
[2017-04-14 10:20] LABS: ALKALINE PHOSPHATASE 102 U/L (45-117); TOTAL PROTEIN 6.8 gm/dl (6.4-8.2)
== END | disposition home or self-care (01) ==
LOC: C.LABCC 09:19
PROVIDERS: ATTEND Internal Medicine
DX: Z01.818 Encounter for other preprocedural examination (principal)